=== PATIENT | female | born 1935 | race Caucasian/White ===

== ENCOUNTER 2021-01-09 06:58 | Inpatient (IN) | payer MEDICARE, BC ==
[2021-01-09] MEDS ORDERED: ASPIRIN ADULT L81 M2 PO (09:22)
[2021-01-09] MEDS ORDERED: LIPITOR20 MG PO (09:23)
[2021-01-09] MEDS ORDERED: CARVEDILOL ER10 MG PO (09:24)
[2021-01-09] MEDS ORDERED: CLOPIDOGREL75 MG PO (09:25)
[2021-01-09] MEDS ORDERED: EXELON1 EACH T (09:25)
[2021-01-09] MEDS ORDERED: FUROSEMIDE40 MG PO (09:26)
[2021-01-09] MEDS ORDERED: LEVOTHYROXINE75 MC1 PO (09:27)
[2021-01-09] MEDS ORDERED: NAMENDA10 MG PO (09:27)
[2021-01-09] MEDS ORDERED: REMERON15 M2 PO (09:28)
[2021-01-09] MEDS ORDERED: PROTONIX TR40 MG PO (09:28)
[2021-01-09] MEDS ORDERED: VITAMIN D250 MCG PO (09:29)
[2021-01-09] MEDS ORDERED: ABH GEL T (09:33)
[2021-01-09 10:32] VITALS: BP 131/91
[2021-01-09 10:56] LABS: BASO % 0.4 % (0.0-1.0); EOS # 0.1 10*3/uL (0.0-0.4); EOS % 0.9 % (1.0-4.0); HEMATOCRIT 37.8 % (37.0-47.0); LYMPH # 1.8 10*3/uL (1.3-4.4); LYMPH % 24.8 % (27.0-41.0); MEAN CELL VOLUME 95.7 fl (81.0-99.0); MEAN CORPUSCULAR HGB 29.9 pg (27.0-31.0); MEAN CORPUSCULAR HGB CONC 31.2 g/dl (33.0-37.0); MEAN PLATELET VOLUME 10.2 fl (9.6-12.3); MONO # 0.5 10*3/uL (0.1-1.0); MONO % 7.2 % (3.0-9.0); NEUT # 4.9 10*3/uL (2.3-7.9); NEUT % 66.4 % (47.0-73.0); PLATELET COUNT AUTOMATED 206 10*3/uL (130-400); RED BLOOD COUNT 3.95 10*6/uL (4.10-5.10); RED CELL DISTRI WIDTH 13.2 % (0-14.5); WHITE BLOOD COUNT 7.4 10*3/uL (4.8-10.8)
[2021-01-09 11:15] LABS: ALBUMIN 3.1 gm/dl (3.1-4.5); BUN 14 mg/dl (7-24); CHLORIDE 113 mmol/L (98-107); CHOLESTEROL 193 mg/dL (<200); CREATININE 0.94 mg/dL (0.55-1.02); LDL CHOLESTEROL 116 mg/dL (9-159); POTASSIUM 4.6 mmol/L (3.5-5.1); SGOT/AST 31 IU/L (3-35); SGPT/ALT 32 U/L (12-78); SODIUM 145 mmol/L (136-145); TRIGLYCERIDES 160 mg/dl (<150)
[2021-01-09 11:23] LABS: ALKALINE PHOSPHATASE 107 U/L (45-117); TOTAL PROTEIN 6.5 gm/dL (6.4-8.2)
[2021-01-09 11:39] LABS: VITAMIN D, 25-HYDROXY 20.5 ng/mL (30-100)
[2021-01-10 08:00] VITALS: BP 138/88
[2021-01-10 09:17] LABS: BILIRUBIN Negative (Negative); BLOOD 2+ (Negative); CLARITY Cloudy (Clear); COLOR Yellow (Yellow); GLUCOSE Negative (Negative); KETONE 3+ (Negative); LEUKO ESTERASE 2+ (Negative); NITRITE Negative (Negative); SPECIFIC GRAVITY 1.025 (1.001-1.030)
[2021-01-10 10:20] LABS: BACTERIA 3+; MUCOUS 2+; RBC 41-50 rbc/hpf (0-2); WBC TNTC wbc/hpf (0-5)
[2021-01-11 10:16] LABS: BASO % 0.4 % (0.0-1.0); EOS # 0.2 10*3/uL (0.0-0.4); EOS % 1.9 % (1.0-4.0); HEMATOCRIT 41.8 % (37.0-47.0); LYMPH # 2.7 10*3/uL (1.3-4.4); LYMPH % 33.8 % (27.0-41.0); MEAN CELL VOLUME 95.4 fl (81.0-99.0); MEAN CORPUSCULAR HGB 29.9 pg (27.0-31.0); MEAN CORPUSCULAR HGB CONC 31.3 g/dl (33.0-37.0); MEAN PLATELET VOLUME 10.6 fl (9.6-12.3); MONO # 0.5 10*3/uL (0.1-1.0); MONO % 6.8 % (3.0-9.0); NEUT # 4.5 10*3/uL (2.3-7.9); NEUT % 56.7 % (47.0-73.0); PLATELET COUNT AUTOMATED 226 10*3/uL (130-400); RED BLOOD COUNT 4.38 10*6/uL (4.10-5.10); WHITE BLOOD COUNT 7.9 10*3/uL (4.8-10.8)
[2021-01-11 10:35] LABS: ALKALINE PHOSPHATASE 115 U/L (45-117); BUN 18 mg/dl (7-24); CHLORIDE 113 mmol/L (98-107); CREATININE 0.98 mg/dL (0.55-1.02); POTASSIUM 4.5 mmol/L (3.5-5.1); SGOT/AST 27 IU/L (3-35); SGPT/ALT 26 U/L (12-78); SODIUM 145 mmol/L (136-145); TOTAL PROTEIN 6.7 gm/dL (6.4-8.2)
[2021-01-12 07:56] VITALS: BP 149/71
[2021-01-12 20:00] VITALS: BP 134/67
[2021-01-13 15:53] LABS: BASO % 0.4 % (0.0-1.0); EOS % 0.6 % (1.0-4.0); HEMATOCRIT 44.4 % (37.0-47.0); LYMPH # 1.4 10*3/uL (1.3-4.4); LYMPH % 19.1 % (27.0-41.0); MEAN CELL VOLUME 94.1 fl (81.0-99.0); MEAN CORPUSCULAR HGB 29.2 pg (27.0-31.0); MEAN CORPUSCULAR HGB CONC 31.1 g/dl (33.0-37.0); MEAN PLATELET VOLUME 10.7 fl (9.6-12.3); MONO # 0.4 10*3/uL (0.1-1.0); MONO % 5.4 % (3.0-9.0); NEUT # 5.3 10*3/uL (2.3-7.9); NEUT % 74.2 % (47.0-73.0); PLATELET COUNT AUTOMATED 265 10*3/uL (130-400); RED BLOOD COUNT 4.72 10*6/uL (4.10-5.10); RED CELL DISTRI WIDTH 13.2 % (0-14.5); WHITE BLOOD COUNT 7.2 10*3/uL (4.8-10.8)
[2021-01-13 16:09] LABS: ALBUMIN 3.2 gm/dl (3.1-4.5); ALKALINE PHOSPHATASE 112 U/L (45-117); BUN 15 mg/dl (7-24); CHLORIDE 115 mmol/L (98-107); CREATININE 0.92 mg/dL (0.55-1.02); POTASSIUM 4.1 mmol/L (3.5-5.1); SGOT/AST 34 IU/L (3-35); SGPT/ALT 29 U/L (12-78); SODIUM 147 mmol/L (136-145); TOTAL PROTEIN 7.1 gm/dL (6.4-8.2)
[2021-01-13 19:48] VITALS: BP 101/68
[2021-01-14 08:01] VITALS: BP 130/70
[2021-01-14 20:00] VITALS: BP 111/52
[2021-01-15 07:42] VITALS: BP 143/74
[2021-01-16 07:45] VITALS: BP 106/73
[2021-01-16 20:00] VITALS: BP 108/79
[2021-01-17 07:34] VITALS: BP 112/52
[2021-01-17 20:46] VITALS: BP 107/69
[2021-01-18 07:30] VITALS: BP 138/79
[2021-01-18 19:05] VITALS: BP 136/72
[2021-01-19 07:41] VITALS: BP 145/69
[2021-01-19] MEDS ORDERED: RIVASTIGMINE1 EAC2 T (09:22)
[2021-01-19] MEDS ORDERED: RISPERIDONE M-0.5 MG OGT (09:22)
[2021-01-19] MEDS ORDERED: MIRTAZAPINE15 M1 PO (09:22)
[2021-01-19] MEDS ORDERED: VITAMIN D3125 MC1 PO (09:22)
[2021-01-19] MEDS ORDERED: MEMANTINE HCL10 MG PO (09:22)
[2021-01-19] MEDS ORDERED: DRONABINOL2.5 MG PO (09:22)
[2021-01-19 20:00] VITALS: BP 135/67
[2021-01-20 08:00] VITALS: BP 123/72
== END 2021-01-20 13:30 | DRG 885 ==
LOC: 3N 06:58
PROVIDERS: Counselor Professional; ADMIT Psychiatry & Neurology Psychiatry; ATTEND Psychiatry & Neurology Psychiatry
DX: F33.2 Major depressive disorder, recurrent severe without psychotic features (principal); F63.81 Intermittent explosive disorder; E44.0 Moderate protein-calorie malnutrition; N39.0 Urinary tract infection, site not specified; E87.0 Hyperosmolality and hypernatremia; K21.9 Gastro-esophageal reflux disease without esophagitis; I25.10 Atherosclerotic heart disease of native coronary artery without angina pectoris; I50.9 Heart failure, unspecified; Z20.822 Contact with and (suspected) exposure to COVID-19; E78.5 Hyperlipidemia, unspecified; Z88.8 Allergy status to other drugs, medicaments and biological substances; G30.9 Alzheimer's disease, unspecified; F02.80 Dementia in other diseases classified elsewhere, unspecified severity, without behavioral disturbance, psychotic disturbance, mood disturbance, and anxiety; Z79.82 Long term (current) use of aspirin; Z79.899 Other long term (current) drug therapy